=== PATIENT | female | born 2000 | race Caucasian/White ===

== ENCOUNTER 2022-08-12 13:49 | Emergency (ER) | payer SELFPAY ==
[~2022-08-12] VITALS: Ht 170.2 cm; Wt 55.5 kg
[2022-08-12 13:51] VITALS: BP 108/65
[2022-08-12] MEDS ORDERED: PEPC1TAB5 PO (14:24)
[2022-08-12] MEDS ORDERED: ZOLO50TA PO (14:24)
[2022-08-12] MEDS ORDERED: MULTTAB20 PO (14:24)
== END 2022-08-12 19:26 | disposition left against medical advice (07) ==
LOC: M ED 13:49
DX: Z53.21 Procedure and treatment not carried out due to patient leaving prior to being seen by health care provider (principal)

== ENCOUNTER → 2023-05-03 | Outpatient (CLI) | payer OTHER ==
[~2023-05-03] MED LIST: MULTTAB20 PO; PEPC1TAB5 PO; ZOLO50TA PO
== END ==
LOC: M PLAIMG 11:42
PROVIDERS: ATTEND Internal Medicine
DX: M25.551 Pain in right hip (principal); M25.552 Pain in left hip

== ENCOUNTER → 2023-05-03 | Outpatient (REF) | payer OTHER ==
[2023-05-03 17:20] LABS: TOTAL PROTEIN,RANDOM URINE 8.7 MG/DL (0.0-14.0)
[2023-05-03 17:25] LABS: CREATININE,RANDOM URINE 185.9 MG/DL
[2023-05-03 17:26] LABS: C REACTIVE PROTEIN QUANTITATIV < 0.40 MG/DL (<1.0); COMPLEMENT C3 107.1 MG/DL (82.0-160.0)
[2023-05-03 17:27] LABS: BASO % 0.7 % (0.0-1.0); COMPLEMENT C4 26.8 MG/DL (12-36); CPK CREATINE PHOSPHOKINASE 68 U/L (34-145); EOS # 0.1 10^3/uL (0.0-0.5); HEMATOCRIT 44.3 % (36.0-47.0); LYMPH # 1.4 10^3/uL (1.5-5.0); LYMPH % 30.7 % (24.0-44.0); MEAN CORPUSCULAR HEMOGLOBIN 28.1 pg (27.0-33.0); MEAN CORPUSCULAR HGB CONC 31.6 g/dl (32.0-36.5); MONO # 0.3 10^3/uL (0.0-0.8); MONO % 6.1 % (2.0-8.0); NEUTROPHILS # 2.8 10^3/uL (1.5-8.5); NEUTROPHILS % 60.3 % (36.0-66.0); PLATELET COUNT, AUTOMATED 215 10^3/uL (150-450); RED BLOOD COUNT 4.98 10^6/uL (4.00-5.40); WHITE BLOOD COUNT 4.6 10^3/uL (4.0-10.0)
[2023-05-03 17:28] LABS: FOLATE > 24.00 NG/ML (>5.4); IMMUNOGLOBULIN G 1368 MG/DL (650-1600); IMMUNOGLOBULIN M 151.3 MG/DL (50-300); IRON (FE) 103 UG/DL (50-170); MAGNESIUM LEVEL 2.2 MG/DL (1.8-2.4); PHOSPHORUS LEVEL 2.6 MG/DL (2.5-4.9); TOTAL 25(OH) VITAMIN D 13.3 NG/ML (20.0-100.0)
[2023-05-03 17:29] LABS: VITAMIN B12 LEVEL 216 PG/ML (211-911)
[2023-05-03 17:36] LABS: APPEARANCE, URINE CLOUDY (CLEAR); BACTERIA, URINE AUTO 2+ (NEGATIVE); BILIRUBIN, URINE AUTO NEGATIVE (NEGATIVE); BLOOD, URINE BLOOD NEGATIVE (NEGATIVE); CALCIUM OXALATE CRYSTALS SMALL; COLOR, URINE YELLOW (YELLOW); GLUCOSE, URINE (UA) AUTO NEGATIVE (NEGATIVE); KETONE, URINE AUTO NEGATIVE (NEGATIVE); LEUKOCYTE ESTERASE, URINE AUTO TRACE (NEGATIVE); MUCUS, URINE LARGE (NEGATIVE); NITRITE, URINE AUTO NEGATIVE (NEGATIVE); PROTEIN, URINE AUTO NEGATIVE (NEGATIVE); RBC, URINE AUTO 3 /HPF (0-3); SPECIFIC GRAVITY URINE AUTO 1.019 (1.002-1.035); SQUAMOUS EPITHELIAL CELL UR AU 8 /HPF (0-6); WBC, URINE AUTO 9 /HPF (0-3)
[2023-05-03 17:51] LABS: ERYTHROCYTE SEDIMENTATION RATE 10 mm/hr (0-20)
[2023-05-06 10:30] LABS: DRVV SCREEN 33.9 SECONDS
[2023-05-06 10:33] LABS: PTT LUPUS TYPE ANTICOAG SCREEN 0.86 (0-1.20)
== END ==
LOC: M SFHCRHEU 10:48
PROVIDERS: ATTEND Internal Medicine
DX: D72.818 Other decreased white blood cell count (principal); R53.83 Other fatigue; M79.10 Myalgia, unspecified site; M25.40 Effusion, unspecified joint; N39.0 Urinary tract infection, site not specified

== ENCOUNTER → 2023-06-08 | Outpatient (CLI) | payer OTHER | LOC: M WHC 12:35 | PROVIDERS: ATTEND Obstetrics & Gynecology Obstetrics | DX: Z32.01 Encounter for pregnancy test, result positive (principal) ==

== ENCOUNTER → 2023-06-11 | Outpatient (REF) | payer OTHER | LOC: M SFHCLERA 16:48 | PROVIDERS: ATTEND Student in an Organized Health Care Education/Training Program | DX: R68.89 Other general symptoms and signs (principal) ==